=== PATIENT | female | born 1955 | race Caucasian/White ===

== ENCOUNTER → 2016-08-11 | Outpatient (CLI) | payer OTHER | LOC: FIMAGING 11:09 | PROVIDERS: ATTEND Family Medicine | DX: M81.0 Age-related osteoporosis without current pathological fracture (principal); Z78.0 Asymptomatic menopausal state ==

== ENCOUNTER → 2017-01-27 | Outpatient (CLI) | payer OTHER | LOC: FIMAGING 11:53 | PROVIDERS: ATTEND Family Medicine | DX: Z12.31 Encounter for screening mammogram for malignant neoplasm of breast (principal) | CPT/HCPCS: G0202 ==

== ENCOUNTER → 2018-02-09 | Outpatient (CLI) | payer OTHER | LOC: FIMAGING 08:08 | PROVIDERS: ATTEND Family Medicine | DX: Z12.31 Encounter for screening mammogram for malignant neoplasm of breast (principal) ==

== ENCOUNTER 2018-06-03 14:00 | Emergency (ER) | payer OTHER ==
[2018-06-03] MEDS ORDERED: PROPARACAINE 0.5% 15 ML OPHT DROP OP ONE (14:46)
[2018-06-03] MEDS ORDERED: FLUORESCEIN SODIUM 1 MG STRIP OP ONE (14:46)
--- NOTE | 2018-06-03 15:02 | EDPHY ---
H & P Smoking Status: Never smoked Time Seen by Provider: 06/03/18 14:41 HPI/ROS: CHIEF COMPLAINT: "I think I have shingles " HISTORY OF PRESENT ILLNESS: 63-year-old immunocompetent female complaining of possible herpes zoster to her face for the past 24 hr. She notes new vesicular lesions on her left forehead. The patient took a leftover acyclovir earlier today. No pain with extraocular movements. No otalgia. No hearing loss. No ocular irritation. No intranasal irritation or intraoral lesions. No jaw pain. No fever or chills. PRIMARY CARE PROVIDER: Dr. Dave Arriaga REVIEW OF SYSTEMS: 10 systems reviewed and negative with the exception of the elements mentioned in the history of present illness PAST MEDICAL & SURGICAL HISTORY: No pertinent medical or surgical history SOCIAL HISTORY: Nonsmoker PHYSICAL EXAM (Prior to examination, patient consented to physical exam, hands were washed and my usual and customary physical exam procedures followed) 1) GENERAL: Well-developed, well-nourished, alert and oriented. Appears to be in no acute distress. 2) HEAD: Normocephalic, atraumatic 3) OCULAR EXAM: Visual Acuity: left: 20/25, right: 20/20, both: 20/20 Pupils:equal round and reactive to light EOMI Lids: no edema or swelling, upper and lower lids were everted and no foreign bodies were visualized, no areas of increased fluorescein uptake. Skin: no proptosis, no periorbital erythema or swelling, no vesicles, no pain with extraocular movements. Conjunctivae: not injected, no discharge, negative Donald test. Cornea: exam with fluorescein showsno areas of increased uptake, no dendrites , no abrasion no ulceration Anterior chamber:normal, no hyphema or hypopyon. Tonometry pressure of the left eye is 13 ENT: Multiple vesicular lesions to the forehead and temporoparietal region consistent with zoster. Negative Weston sign. Nasopharynx, oropharynx, clear, no lesions. No lesions to the auricle or external auditory canal. Normal tympanic membrane. No evidence of [place] Mark.Moist Mucous membranes. 4) NECK: Full range of motion, no meningeal signs. 5) LUNGS: Clear auscultation bilaterally, no wheezes, no rhonchi, no retractions. 6) HEART: Regular rate and rhythm, no murmur, no heave, no gallop. 7) ABDOMEN: No guarding, no rebound, no focal tenderness, negative McBurney's, negative Keen's, negative Rovsing's, negative peritoneal sign, 8) MUSCULOSKELETAL: Moving all extremities, no focal areas of tenderness, no obvious trauma. No peripheral edema or discoloration. 9) BACK: No CVA tenderness, no midline vertebral tenderness, no fluctuance, no step-off, no obvious trauma, no visual or palpable abnormality. 10) SKIN: No rash, no petechiae. 11) Psychiatric: Patient is oriented X 3, there is no agitation. DIFFERENTIAL DIAGNOSIS: In no particular include but limited to facial zoster, zoster ophthalmicus, cellulitis (Rafa,Radha Daly) Constitutional: Initial Vital Signs Temperature (C) 36.9 C 06/03/18 14:22 Heart Rate 70 06/03/18 14:22 Respiratory Rate 16 06/03/18 14:22 Blood Pressure 136/87 H 06/03/18 14:22 O2 Sat (%) 95 06/03/18 14:22 O2 Delivery Mode Room Air Allergies/Adverse Reactions: No Known Allergies Allergy (Unverified 06/03/18 14:21) Home Medications: Medication Instructions Recorded Vits,Minerals,Coq10,Fish Oil 02/17/09 Valacyclovir HCl [Valtrex] 1,000 mg PO TID #21 tab 06/03/18 MDM/Departure - MDM Medications Given: Discontinued Medications Fluorescein Sodium (Bioglo) 1 mg OP EDNOW ONE Stop: 06/03/18 14:47 Last Admin: 06/03/18 15:11 Dose: 1 mg Proparacaine HCl (Alcaine 0.5%) 1 drops OP EDNOW ONE Stop: 06/03/18 14:47 Last Admin: 06/03/18 15:11 Dose: 1 drops Valacyclovir HCl (Valtrex) 1,000 mg PO EDNOW ONE Stop: 06/03/18 15:17 Last Admin: 06/03/18 15:57 Dose: 1,000 mg ED Course/Re-evaluation: Patient has no evidence of zoster ophthalmicus. She does have evidence of zoster to her face. No evidence of [place] Mark syndrome. She has no definitive involvement of the orbit. Today is Monday. Doubt meningitis or encephalitis. Patient has already taken a pre-hospital acyclovir. I have Given the patient Valtrex prescription, recommend she see Ophthalmology tomorrow for comprehensive ophthalmological evaluation. If any point she develops visual acuity changes, pain with eye movement, or any other symptoms to return to the ER immediately for re-evaluation. She feels comfortable being discharged. All questions and concerns addressed by myself. Care of patient under supervision of secondary supervising physician Dr Martin ([facility],Radha Daly) The patient was evaluated and managed by the physician assistant restaurant general manager. I have reviewed this chart and I agree with the findings and plan of care as documented , as indicated by my signature. I am the secondary supervising physician. ( Marie Martin) - Depart Disposition: Home, Routine, Self-Care Clinical Impression: Herpes zoster virus infection of face and ear nerves Condition: Good Instructions: Shingles (ED) Additional Instructions: If you develop eye pain, eye irritation, or any other symptoms you need to seek immediate medical attention Prescriptions: Valacyclovir HCl [Valtrex] 1,000 mg PO TID #21 tab Referrals: Gael Betts MD [Medical Doctor] - 1 day without fail (Dr. Gael Betts is an credit administration officer)
[2018-06-03] MEDS ORDERED: valACYclovir 500 MG TAB PO ONE (15:16)
[2018-06-03 16:12] VITALS: BP 125/85
== END 2018-06-03 16:12 | disposition home or self-care (01) ==
DX: B02.9 Zoster without complications (principal)

== ENCOUNTER → 2018-06-18 | Outpatient (CLI) | payer OTHER | LOC: FIMAGING 13:01 | PROVIDERS: ATTEND Internal Medicine Rheumatology | DX: M81.0 Age-related osteoporosis without current pathological fracture (principal); Z78.0 Asymptomatic menopausal state ==